=== PATIENT | female | born 1945 | race African-American/Black ===

== ENCOUNTER 2017-07-25 15:35 | Emergency (ER) | payer OTHER ==
[~2017-07-25] VITALS: Ht 160 cm; Wt 99.6 kg
[~2017-07-25 15:35] MED LIST: AMLODIPINE BESY10 MG PO; APRESOLINE100 MG PO; CATAPRES0.1 MG PO; CLONIDINE HCL0.1 MG PO; CLOPIDOGREL75 MG PO; HYDRALAZINE HC100 MG PO; HYDROCHLOROTHIA25 MG PO; IMDUR120 MG PO; INSULIN PO; ISOSORBIDE MON120 M1 PO; LEVEMIR100 UNIT/2 SC; LISINOPRIL40 MG PO; LO-DOSE ASPIRIN81 M1 PO; LOPRESSOR50 MG PO; NORVASC10 MG PO; NOVOLOG MI100 UNIT/M SQ; NOVOLOG PE100 UNITS/ SC; PLAVIX75 MG PO; ULTRACET1 TABLET PO; ZESTRIL40 MG PO
[2017-07-25] MEDS ORDERED: AUGMENTIN875 MG PO (18:39)
[2017-07-25] MEDS ORDERED: ULTRACET1 TABLET PO (18:39)
[2017-07-25] MEDS ORDERED: MOTRIN600 MG PO (18:39)
[2017-07-25 18:56] VITALS: BP 110/71
== END 2017-07-25 18:57 | disposition home or self-care (01) ==
LOC: EME 15:35
DX: K02.9 Dental caries, unspecified (principal); L02.91 Cutaneous abscess, unspecified; E11.9 Type 2 diabetes mellitus without complications; E78.5 Hyperlipidemia, unspecified; I10 Essential (primary) hypertension; F17.200 Nicotine dependence, unspecified, uncomplicated; Z95.5 Presence of coronary angioplasty implant and graft; Z79.82 Long term (current) use of aspirin; Z88.2 Allergy status to sulfonamides
CPT/HCPCS: 99281; 99283; J1885

== ENCOUNTER 2018-01-20 10:33 | Emergency (ER) | payer OTHER ==
[~2018-01-20] VITALS: Ht 160 cm; Wt 103.1 kg
[~2018-01-20 10:33] MED LIST changes: +AUGMENTIN875 MG PO; +MOTRIN600 MG PO
[2018-01-20 11:51] LABS: BASOPHIL (%) 0.4 % (0-1); EOSINOPHIL (%) 1.2 % (0-5); EOSINOPHIL COUNT 0.1 K/uL (0-0.3); HEMATOCRIT 39.2 % (36.0-46.0); HEMOGLOBIN 12.9 G/DL (11.9-15.5); IMMATURE GRANULOCYTE (%) 0.2 % (0.0-0.7); LYMPHOCYTE (%) 25.3 % (15-42); LYMPHOCYTE COUNT 1.3 K/uL (1.0-2.8); MCH 25.6 PG (29.0-34.0); MCHC 32.9 G/DL (30.0-36.0); MCV 77.8 FL (83-99); MONOCYTE (%) 5.9 % (3-12); MONOCYTE COUNT 0.3 K/uL (0-0.8); NEUTROPHIL COUNT 3.4 K/uL (1.8-6.4); PLATELET COUNT 167 K/uL (156-360); RBC DIS.WIDTH-CV 13.7 % (11.8-14.6); RBC DIS.WIDTH-SD 38.6 % (39-53); RED BLOOD COUNT 5.04 M/uL (3.80-5.20); WHITE BLOOD COUNT 5.1 K/uL (4.1-10.2)
[2018-01-20 11:59] LABS: CHLORIDE 101 mEq/L (99-109); POTASSIUM 4.3 mEq/L (3.7-5.4); SODIUM 136 mEq/L (136-147)
[2018-01-20 12:00] LABS: GLUCOSE 262 mg/dL (70-99)
[2018-01-20 12:04] LABS: CREATININE 1.3 mg/dL (0.6-1.3); GFR ESTIMATE (CALCULATED) 52 mL/min/
[2018-01-20 12:05] LABS: UREA NITROGEN (BUN) 22 mg/dL (9-23)
[2018-01-20 14:35] VITALS: BP 162/80
== END 2018-01-20 14:41 | disposition home or self-care (01) ==
LOC: EME 10:33
PROVIDERS: Emergency Medicine
DX: I10 Essential (primary) hypertension (principal); E11.9 Type 2 diabetes mellitus without complications; E78.5 Hyperlipidemia, unspecified; F17.200 Nicotine dependence, unspecified, uncomplicated; I25.2 Old myocardial infarction; Z95.5 Presence of coronary angioplasty implant and graft; Z79.82 Long term (current) use of aspirin; Z88.2 Allergy status to sulfonamides
CPT/HCPCS: 71045; 80048; 85025; 93005; 99281; 99285